=== PATIENT | female | born 1980 | race American Indian/Alaskan Native ===

== ENCOUNTER 2021-09-28 04:25 | Emergency (ER) | payer SELFPAY ==
[2021-09-28] MEDS ORDERED: ONDANSETRON 4 MG/2 ML INJ IV ONE (07:43)
[2021-09-28] MEDS ORDERED: MORPHINE 4 MG/1 ML INJ IV ONE (07:43)
[2021-09-28] MEDS ORDERED: SODIUM CHLORIDE 0.9% 1000 ML 1,000 ML IV ONE (07:43)
--- NOTE | 2021-09-28 07:54 | Emergency Department Report ---
ED HPI - General Chief complaint: Vaginal Bleeding Stated complaint: MISCARRIAGE Time Seen by Provider: 09/28/21 06:57 Source: patient, EMS Mode of arrival: Stretcher Limitations: No Limitations - History of Present Illness Initial comments: 41 yo F with with 1 miscarriage at 18 5/7 wks who now present with bilateral lower abdominal pain that started around 12 midnight associated with vaginal bleeding and passage of tissue around 2AM. She reports continuous vaginal bleeding changing her pad on an average of 1-2 per hour. Her first son is 17 yrs old and the last miscarriage was at 2 weeks and was about a year ago. Pt had initial US at 12 weeks and is suppose to follow up with maternal clinic today before the symptoms started overnight. No fever or chills reported and patient denies any urinary symptoms. She denies any dizziness or sob or palpitation. No other modifying or associated factors reported. - Related Data Allergies Allergy/AdvReac Type Severity Reaction Status Date / Time No Known Allergies Allergy Verified 09/28/21 04:50 ED Review of Systems ROS: Stated complaint: MISCARRIAGE Other details as noted in HPI Comment: All other systems reviewed and negative Gastrointestinal: abdominal pain, other Genitourinary: other (vaginal bleeding ) ED Past Medical Hx - Past Medical History Previous Medical History?: No - Surgical History Past Surgical History?: No - Social History Smoking Status: Never Smoker Substance Use Type: None ED Physical Exam - General Limitations: No Limitations General appearance: alert, in no apparent distress - Head Head exam: Present: normal inspection - Eye Eye exam: Present: normal appearance Pupils: Present: normal accommodation - ENT ENT exam: Present: normal orophraynx, mucous membranes dry - Neck Neck exam: Present: normal inspection, full ROM. Absent: tenderness - Respiratory Respiratory exam: Present: normal lung sounds bilaterally. Absent: respiratory distress, accessory muscle use - Cardiovascular Cardiovascular Exam: Present: regular rate, normal rhythm, normal heart sounds - GI/Abdominal GI/Abdominal exam: Present: soft, tenderness (suprapubic area), normal bowel sounds. Absent: distended - Extremities Exam Extremities exam: Present: normal inspection, full ROM, normal capillary refill - Back Exam Back exam: Present: normal inspection. Absent: tenderness - Neurological Exam Neurological exam: Present: alert, oriented X3 - Psychiatric Psychiatric exam: Present: normal affect, normal mood - Skin Skin exam: Present: warm, normal color ED Course Vital Signs 09/28/21 09/28/21 09/28/21 04:45 05:01 05:15 Temperature 100.9 F H Pulse Rate 115 H 115 H 116 H Respiratory 24 34 H 27 H Rate Blood Pressure 91/46 100/50 100/50 Blood Pressure 91/46 [Left] O2 Sat by Pulse 98 99 98 Oximetry 09/28/21 09/28/21 09/28/21 05:31 05:45 06:01 Temperature Pulse Rate 111 H 111 H 108 H Respiratory 31 H 35 H 31 H Rate Blood Pressure 104/46 104/46 96/50 Blood Pressure [Left] O2 Sat by Pulse 99 98 99 Oximetry 09/28/21 09/28/21 09/28/21 06:15 07:01 08:01 Temperature Pulse Rate 108 H 102 H 97 H Respiratory 36 H 27 H 27 H Rate Blood Pressure 96/50 99/53 97/64 Blood Pressure [Left] O2 Sat by Pulse 98 100 99 Oximetry 09/28/21 09/28/21 10:53 14:54 Temperature 97.9 F Pulse Rate 99 H 92 H Respiratory 18 18 Rate Blood Pressure Blood Pressure 97/64 89/51 [Left] O2 Sat by Pulse 98 Oximetry ED Medical Decision Making - Lab Data Result diagrams: 09/28/21 08:47 09/28/21 08:47 - Medical Decision Making here with vaginal bleeding with previous US that she reported intrauterine at 18 5/7 weeks-- with passage of tissue this could be either complete or incomplete or threatened -- will go ahead and order transvaginal US for differentiation or further evaluation and consult with Industrial Psychology Teacher -- In the meantime patient started on ivf ns 1L bolus and make comfortable with Morphine 2 mg IV x 1 and Zofran 4 mg Iv x 1-- while waiting for the routine labs that include CBC, CMP and UA and coag profile-- Ob US resulted FINDINGS: GESTATIONAL SAC: A gestational sac is not well seen. Within the endometrial cavity there is heterogeneous echotexture with increased vascularity. YOLK SAC: Not seen EMBRYO/FETUS: Not seen ADNEXA: No significant abnormality. FREE FLUID: None. ADDITIONAL FINDINGS: None. IMPRESSION: No evidence of intrauterine gestation. Within the endometrial canal there is heterogeneous echotexture with increased vascularity suggesting retained products of conception. Additional considerations would include a molar , correlate clinically. noted with above result with no intrauterine gestation -- with reviewed labs showing mildly low H&H at 8.8/27.6 -- At this point Dr Gay who agreed with treatment so far and wanted patient to call her office tomorrow for follow up on Sunday -- and wanting Metogen 0.2 mg q6hrs for the next 2 days. Pt blood type 0 negative so rhogam indicated. Critical care attestation.: If time is entered above; I have spent that time in minutes in the direct care of this critically ill patient, excluding procedure time. ED Disposition Clinical Impression: Threatened affecting intrauterine , Miscarriage at 8 to 28 weeks gestation Disposition: HOME / SELF CARE / HOMELESS Is pt being admited?: No Does the pt Need Aspirin: No Condition: Stable Instructions: Miscarriage, [id number], Vaginal Bleeding During , Second Trimester, [id number] Additional Instructions: It is very important that you call and follow-up with your GEODESIST/or Dr. Saint Conrad in the next 24 hours to schedule follow-up on Sunday for further evaluation and treatment Call or return to emergency room if your bleeding worsen It is okay to take your pain medication as prescribed to help your pain Increase your daily fluid to help your hydration Referrals: PRIMARY CARE, [Primary Care Provider] - 3-5 Days Time of Disposition: 13:46
--- NOTE | 2021-09-28 08:52 | Ultrasound Report ---
ULTRASOUND OBSTETRIC INDICATION / CLINICAL INFORMATION: trauma at 17 gestation. Clinical Gestational Age (GA) in weeks, days: 18, 5 TECHNIQUE: Transabdominal. COMPARISON: None available. FINDINGS: GESTATIONAL SAC: A gestational sac is not well seen. Within the endometrial cavity there is heterogen eous echotexture with increased vascularity. YOLK SAC: Not seen EMBRYO/FETUS: Not seen ADNEXA: No significant abnormality. FREE FLUID: None. ADDITIONAL FINDINGS: None. IMPRESSION: No evidence of intrauterine gestation. Within the endometrial canal there is heterogeneous echotextur e with increased vascularity suggesting retained products of conception. Additional considerations wo uld include a molar , correlate clinically. Signer Name: Manav Cutler DO Signed: 09/28/2021 8:48 AM Workstation Name: [id number]
[2021-09-28 09:41] LABS: Hematocrit 27.3 % (30.3-42.9); Hemoglobin 8.8 gm/dl (10.1-14.3); Mean Corpuscular HGB Conc 32 % (30-34); Mean Corpuscular Volume 78 fl (79-97); Platelet Count 206 K/mm3 (140-440); Red Blood Count 3.49 M/mm3 (3.65-5.03); Red Cell Distribution Width 16.9 % (13.2-15.2)
[2021-09-28 09:47] LABS: Alanine Aminotransferase 24 units/L (7-56); Albumin 3.5 g/dL (3.9-5); Blood Urea Nitrogen 8 mg/dL (7-17); Calcium 8.2 mg/dL (8.4-10.2); Hemolysis Index 0
[2021-09-28 10:02] LABS: INR 1.1 (0.87-1.13); Partial Thromboplastin Time 32.8 Sec. (24.2-36.6)
[2021-09-28 10:07] LABS: BUN/Creatinine Ratio 11
[2021-09-28 10:55] LABS: Band Neutrophils # (Manual) 2.1 K/mm3; Basophils % (Manual) 0 % (0.0-1.8); Eosinophils % (Manual) 0 % (0.0-4.3); Monocytes % (Manual) 7.5 % (0.0-7.3); Total Cells Counted 200
[2021-09-28 11:00] LABS: Anisocytosis 2+; Hypochromasia 1+; Large Platelets Rare; Ovalocytes Rare; Poikilocytosis Few; Stomatocytes Rare; Target Cells Rare
[2021-09-28 11:01] LABS: Platelet Clumps Few
[2021-09-28 17:23] VITALS: BP 95/56
== END 2021-09-28 17:39 | disposition home or self-care (01) ==
LOC: ED 04:25
DX: O20.0 Threatened abortion (principal); Z3A.17 17 weeks gestation of pregnancy; Z79.899 Other long term (current) drug therapy
CPT/HCPCS: 36415; 76801; 80053; 84702; 85007; 85025; 85461; 85610; 85730; 86431; 86850; 86900; 86901; 96361; 96372; 96374; 96375; 99284; J2270; J2405; J2790; J7030